=== PATIENT | male | born 1985 | race Caucasian/White ===

== ENCOUNTER → 2017-06-26 | Outpatient (CLI) | payer BC ==
[2017-06-26 14:25] LABS: HEMOGLOBIN 16.4 gm/dl (14.0-17.5); RED BLOOD COUNT 5.58 M/UL (4.20-5.50); WHITE BLOOD COUNT 9.1 K/UL (4.5-11.0)
[2017-06-26 14:40] LABS: BUN/CREATININE RATIO 18 (0-10)
== END ==
LOC: LAB 13:50
PROVIDERS: Nurse Practitioner
DX: R21 Rash and other nonspecific skin eruption (principal); R50.9 Fever, unspecified
CPT/HCPCS: 80053; 82784; 85025; 85027; 86140; 86403; 86618